=== PATIENT | female | born 1990 | race Two or more races ===

== ENCOUNTER 2018-02-13 18:55 | Emergency (ER) | payer MEDICAID, OTHER ==
[~2018-02-13] VITALS: Ht 147.3 cm; Wt 79.4 kg
[2018-02-13 20:28] VITALS: BP 132/87
[2018-02-13] MEDS ORDERED: cefTRIAXone SOD 1,000 MG VL IM ONE (20:45)
[2018-02-13] MEDS ORDERED: PHENAZOPYRIDINE HCL 100 MG TAB PO ONE (20:45)
== END 2018-02-13 21:22 | disposition home or self-care (01) ==
LOC: ER 18:59
DX: N39.0 Urinary tract infection, site not specified (principal); K59.00 Constipation, unspecified; Z88.2 Allergy status to sulfonamides
CPT/HCPCS: 74018; 81025; 96372; 99284; J0696

== ENCOUNTER 2019-01-11 08:49 | Emergency (ER) | payer OTHER ==
[~2019-01-11] VITALS: Ht 147.3 cm; Wt 75.3 kg
[2019-01-11] MEDS ORDERED: LIDOCAINE 1% HCL (LOCAL ANESTH.) INJ 20ML MDV ONE (11:07)
[2019-01-11] MEDS ORDERED: cefTRIAXone SOD 1,000 MG VL IM ONE (11:15)
[2019-01-11] MEDS ORDERED: LIDOCAINE 1% HCL (LOCAL ANESTH.) INJ 20ML MDV IJ ONE (11:15)
[2019-01-11 11:21] VITALS: BP 103/71
== END 2019-01-11 11:36 | disposition home or self-care (01) ==
LOC: ER 08:49
DX: L02.214 Cutaneous abscess of groin (principal); Z87.440 Personal history of urinary (tract) infections; Z88.2 Allergy status to sulfonamides
CPT/HCPCS: 96372; 99283; J0696; J2001

== ENCOUNTER 2019-01-14 08:21 | Emergency (ER) | payer OTHER ==
[~2019-01-14] VITALS: Ht 147.3 cm; Wt 75.3 kg
[2019-01-14 08:49] VITALS: BP 102/62
[2019-01-14] MEDS ORDERED: LIDOCAINE 1% HCL (LOCAL ANESTH.) INJ 20ML MDV IJ ONE (09:15)
== END 2019-01-14 09:45 | disposition home or self-care (01) ==
LOC: ER 08:21
DX: L02.214 Cutaneous abscess of groin (principal)
CPT/HCPCS: 10060; 87070; 87088; 87186; 99283; J2001

== ENCOUNTER 2019-01-19 08:54 | Emergency (ER) | payer OTHER ==
[~2019-01-19] VITALS: Ht 147.3 cm; Wt 75.3 kg
[2019-01-19 09:05] VITALS: BP 106/67
== END 2019-01-19 09:22 | disposition home or self-care (01) ==
LOC: ER 08:54
DX: Z48.817 Encounter for surgical aftercare following surgery on the skin and subcutaneous tissue (principal); Z88.2 Allergy status to sulfonamides; Z87.440 Personal history of urinary (tract) infections

== ENCOUNTER 2019-07-29 12:03 | Emergency (ER) | payer OTHER ==
[~2019-07-29] VITALS: Ht 147.3 cm; Wt 78.0 kg
[2019-07-29 12:18] VITALS: BP 115/73
[2019-07-29] MEDS ORDERED: PHENAZOPYRIDINE HCL 100 MG TAB PO ONE (12:30)
== END 2019-07-29 13:21 | disposition home or self-care (01) ==
LOC: ER 12:03
DX: N39.0 Urinary tract infection, site not specified (principal); Z88.2 Allergy status to sulfonamides